=== PATIENT | male | born 1945 | race Caucasian/White ===

== ENCOUNTER 2016-12-02 17:28 | Emergency (ER) | payer MEDICARE ==
[2016-12-02 18:11] VITALS: BP 130/91
--- NOTE | 2016-12-02 18:32 | UC ---
Skin Complaint HPI - HPI Summary HPI Summary: 71 yo male remove tick from left chest today states he thinks it was attached for 2 days - History of Current Complaint Chief Complaint: UCSkin Time Seen by Provider: 12/02/16 18:24 Stated Complaint: TICK BITE Hx Obtained From: Patient Onset/Duration: Sudden Onset Skin Exposure Onset/Duration: Days Ago Timing: Constant Onset Severity: Mild Current Severity: None Pain Intensity: 0 Pain Scale Used: 0-10 Numeric Location: Other - left chest Aggravating: Nothing Alleviating: Nothing Associated Signs & Symptoms: Positive: Negative Related History: Insect Bite/Sting - Allergy/Home Medications Allergies/Adverse Reactions: Allergies Allergy/AdvReac Type Severity Reaction Status Date / Time No Known Allergies Allergy Verified 11/01/14 10:31 Home Medications: Home Medications Amlodipine Besylate-Benazepril [Lotrel 5-20 mg] 1 cap PO DAILY 12/02/16 [ History Confirmed 12/02/16] Aspirin EC Low Dose* [Ecotrin EC Low Dose 81 MG*] 81 mg PO DAILY 12/02/16 [ History Confirmed 12/02/16] Atorvastatin* [Lipitor*] 10 mg PO 1700 12/02/16 [History Confirmed 12/02/16] DULoxetine DR CAP* [Cymbalta CAP*] 30 mg PO BID 12/02/16 [History Confirmed 08/08] Meloxicam 7.5 mg PO DAILY 12/02/16 [History Confirmed 12/02/16] Metoprolol Tartrate TAB* [Lopressor TAB*] 25 mg PO DAILY 12/02/16 [History Confirmed 12/02/16] Omeprazole CAP* [Prilosec CAP* 20 MG] 20 mg PO DAILY 12/02/16 [History Confirmed 12/02/16] Tamsulosin CAP* [Flomax CAP*] 0.4 mg PO DAILY 12/02/16 [History Confirmed ] Review of Systems Constitutional: Negative Skin: Negative Eyes: Negative ENT: Negative Respiratory: Negative Cardiovascular: Negative Gastrointestinal: Negative Genitourinary: Negative Motor: Negative Neurovascular: Negative Musculoskeletal: Negative Neurological: Negative Psychological: Negative All Other Systems Reviewed And Are Negative: Yes PMH/Surg Hx/FS Hx/Imm Hx Previously Healthy: Yes Cardiovascular History Of: Reports: Hypertension Denies: Cardiac Disorders - Surgical History Surgical History: Yes Surgery Procedure, Year, and Place: 12/2012 total hip left side; appy and hernia 1978. bladder and prostate 2002; hernia inguinal ~2005 - Family History Known Family History: Positive: Hypertension, Diabetes - Social History Alcohol Use: Daily Alcohol Amount: 1-2 daily Substance Use Type: None Smoking Status (MU): Never Smoked Tobacco Physical Exam Triage Information Reviewed: Yes Appearance: Well-Appearing, No Pain Distress, Well-Nourished Vital Signs: Initial Vital Signs Temp 97.2 F 12/02/16 18:02 Pulse 99 12/02/16 18:02 Resp 16 12/02/16 18:02 BP 130/91 12/02/16 18:02 Pulse Ox 96 12/02/16 18:02 Vital Signs Reviewed: Yes Eyes: Positive: Conjunctiva Clear ENT: Positive: Other: - bilat hearing aids. Negative: Hearing grossly normal, Nasal congestion, Nasal drainage, Trismus, Muffled/hoarse voice Dental: Negative: Abscess @ Neck: Positive: Supple, Nontender, No Lymphadenopathy Respiratory: Positive: Lungs clear, Normal breath sounds, No respiratory distress, No accessory muscle use Cardiovascular: Positive: RRR, No Murmur Musculoskeletal: Positive: Strength Intact, ROM Intact, No Edema Neurological: Positive: Alert Psychological Exam: Normal Skin Exam: Normal - tick removed in toto/no granuloma Course/Dx - Diagnoses Provider Diagnoses: tick bite. michael disease prophylaxis Discharge - Discharge Plan Condition: Stable Disposition: HOME Prescriptions: DOXYcycline CAP(*) [DOXYcycline 100MG CAP(*)] 200 mg PO ONCE #2 cap Patient Education Materials: Tick Bite (ED) Referrals: Magdalena Abad MD [Primary Care Provider] - Additional Instructions: call for any questions return for any problems take two doxy with food today
== END 2016-12-02 18:39 | disposition home or self-care (01) ==
LOC: UCCORT 17:28
DX: S20.362A Insect bite (nonvenomous) of left front wall of thorax, initial encounter (principal); W57.XXXA Bitten or stung by nonvenomous insect and other nonvenomous arthropods, initial encounter; Y93.9 Activity, unspecified; Y92.9 Unspecified place or not applicable; I10 Essential (primary) hypertension; Z96.642 Presence of left artificial hip joint
CPT/HCPCS: 99212; G0463

== ENCOUNTER 2017-01-19 09:01 | Emergency (ER) | payer MEDICARE ==
[2017-01-19 09:45] VITALS: BP 128/82
--- NOTE | 2017-01-19 09:51 | UC ---
Skin Complaint HPI - HPI Summary HPI Summary: tick bite left lower leg x 6 days ago tick was removed by the pt. now the area is red, tender, no discharge, no fever, no chills, no joint pain , pt. took doxy 200 mg x 1 6 days ago - History of Current Complaint Chief Complaint: UCSkin Time Seen by Provider: 01/19/17 09:30 Stated Complaint: TICK BITE Hx Obtained From: Patient Onset/Duration: Sudden Onset, Lasting Days - 6, Still Present Timing: Constant Onset Severity: Moderate Current Severity: Moderate Character: Swelling, Pain, Raised Aggravating: Nothing Alleviating: Nothing Associated Signs & Symptoms: Positive: Tenderness. Negative: Nausea, Vomiting, Numbness, Thirst, Diaphoresis, Weakness, Pallor, Shivering, Fever, Chills, Red Streaks - Allergy/Home Medications Allergies/Adverse Reactions: Allergies Allergy/AdvReac Type Severity Reaction Status Date / Time No Known Allergies Allergy Verified 01/19/17 09:21 Home Medications: Home Medications Amlodipine Besylate [Norvasc 5 mg tab] 5 mg PO DAILY 01/19/17 [History Confirmed 01/19/17] Benazepril HCl 20 mg PO QAM 01/19/17 [History Confirmed 01/19/17] Review of Systems Constitutional: Negative Skin: Negative Eyes: Negative ENT: Negative Respiratory: Negative Cardiovascular: Negative Gastrointestinal: Negative Genitourinary: Negative Motor: Negative Neurovascular: Negative Musculoskeletal: Negative Neurological: Negative Psychological: Negative All Other Systems Reviewed And Are Negative: Yes PMH/Surg Hx/FS Hx/Imm Hx Cardiovascular History Of: Reports: Hypertension Denies: Cardiac Disorders - Surgical History Surgical History: Yes Surgery Procedure, Year, and Place: 12/2012 total hip left side; appy and hernia 1978. bladder and prostate 2002; hernia inguinal ~2005 - Family History Known Family History: Positive: Hypertension, Diabetes - Social History Alcohol Use: Daily Alcohol Amount: 1-2 daily Substance Use Type: None Smoking Status (MU): Never Smoked Tobacco - Immunization History Most Recent Tetanus Shot: about 2012 Physical Exam Triage Information Reviewed: Yes Appearance: Well-Appearing, No Pain Distress, Well-Nourished Vital Signs: Initial Vital Signs Temp 98.3 F 01/19/17 09:13 Pulse 94 01/19/17 09:13 Resp 18 01/19/17 09:13 BP 128/82 01/19/17 09:13 Eye Exam: Normal Eyes: Positive: Conjunctiva Clear ENT: Positive: Normal ENT inspection, Hearing grossly normal, Pharynx normal Neck: Positive: Supple, Nontender, No Lymphadenopathy Respiratory: Positive: Chest non-tender, Lungs clear, Normal breath sounds Cardiovascular: Positive: RRR, No Murmur, Pulses Normal Skin: Positive: Other - tick site at the left lower leg, + erythema due to truma , no discharge, mild tenderness Course/Dx - Diagnoses Provider Diagnoses: tick bite. wound care Discharge - Discharge Plan Condition: Stable Disposition: HOME Patient Education Materials: Acute Wound Care (ED) Referrals: Magdalena Abad MD [Medical Doctor] - If Needed Additional Instructions: keep the wound clean and dry no need for po abx
== END 2017-01-19 09:54 | disposition home or self-care (01) ==
LOC: UCCORT 09:01
DX: S80.862A Insect bite (nonvenomous), left lower leg, initial encounter (principal); W57.XXXA Bitten or stung by nonvenomous insect and other nonvenomous arthropods, initial encounter
CPT/HCPCS: 99211; G0463

== ENCOUNTER → 2019-07-26 11:00 | Day surgery (SDC) | payer MEDICARE ==
[~2019-07-26 11:00] MED LIST: Buffered Lidocaine 1% SYRIN* 1 ML/SYRINGE INTRADERM ONE; Midazolam* 1 MG/ML 2 ML VIAL (2 MG) ONE
[2019-07-26 14:22] VITALS: BP 129/83
--- NOTE | 2019-07-26 15:45 | OP ---
DATE OF OPERATION: 07/26/2019 - [facility] DATE OF : 1945. SURGEON: Rodríguez Warren M.D. PREOPERATIVE DIAGNOSIS: Cataract left eye. POSTOPERATIVE DIAGNOSIS: Cataract left eye. OPERATIVE PROCEDURE: Extracapsular cataract extraction with intraocular lens implant left eye. DESCRIPTION OF PROCEDURE: The patient was brought to the operating room after being given 1/2% Alcaine with epinephrine drops in the preoperative area. The eye was prepped and draped in the usual sterile fashion. Sterile drape and eyelid speculum were placed. Again, topical 1/2% Alcaine with epinephrine was given. A paracentesis incision was made at the 3 o'clock position with the No.75 blade. Clear cornea incision 2.2 x 2.2-mm was created at the 6 o'clock position starting at the anterior limbus using the 2.2-mm keratome. The anterior chamber was irrigated with 0.4 mL of 1% non-preservative intracameral lidocaine and filled with DisCoVisc. A capsulorrhexis was completed using the cystotome and the Utrata forceps. Hydrodissection was performed with balanced salt solution. The lens nucleus was removed with the Phacoemulsification handpiece without incident. Cortex was removed with the irrigation-aspiration handpiece. The capsular bag was re-inflated using DisCoVisc and an [id number] 22.5 implant was inserted with the shooter. The pupil was very small, so a Malyugin ring was used to dilate the pupil prior to capsulorrhexis and removed after insertion of the lens. The irrigation-aspiration handpiece was used to remove all residual DisCoVisc. The eye was refilled with balanced salt solution and the wound checked and found to be watertight. Topical Maxitrol drops were given. Indication for complex cataract surgery: Pupil area abnormalities requiring pupil dilation device. [id number]/[facility] #: [id number] [facility] MEDICAL CENTERVeronica
== END | disposition home or self-care (01) ==
LOC: OREAST 11:00
PROVIDERS: ATTEND Specialist
DX: H25.812 Combined forms of age-related cataract, left eye (principal); H21.562 Pupillary abnormality, left eye; H53.022 Refractive amblyopia, left eye; I10 Essential (primary) hypertension; E78.00 Pure hypercholesterolemia, unspecified; M19.90 Unspecified osteoarthritis, unspecified site; E78.5 Hyperlipidemia, unspecified; K21.9 Gastro-esophageal reflux disease without esophagitis
CPT/HCPCS: J2250; V2632

== ENCOUNTER 2019-08-02 10:39 | Day surgery (SDC) | payer MEDICARE ==
[~2019-08-02 10:39] MED LIST changes: +Cyclopentolate 1% OPTH.SOL* 2 ML BTL ONE; +Ketorolac 0.5% OPHTH (NF) 0.5 % 5 ML BTL ONE; +Lidocaine 1% MPF ** 5 ML VIAL ONE; +Lidocaine 2% w/ EPI 1:200,000* 20 ML SDV VIAL ONE; -Midazolam* 1 MG/ML 2 ML VIAL (2 MG) ONE; +Neomycin/Polymy/Dex OPTH.SUSP* MAXITROL 0.1% 5 ML ONE; +Phenylephrine OPHTH SOL 2.5%* 2 ML ONE; +Povidone Iodine 5% OPTH* 30 ML BTL ONE; +Proparacaine 0.5% OPHTH.SOL* 15 ML BTL ONE; +acetaZOLAMIDE TAB* 250 MG ONE
[2019-08-02] MEDS ORDERED: Midazolam* 1 MG/ML 2 ML VIAL (2 MG) ONE (14:07)
[2019-08-02 14:54] VITALS: BP 130/89
--- NOTE | 2019-08-02 15:01 | OP ---
DATE OF OPERATION: 08/02/2019. DATE OF : 1945. SURGEON: Rodríguez Warren M.D. PREOPERATIVE DIAGNOSIS: Cataract right eye. POSTOPERATIVE DIAGNOSIS: Cataract right eye. OPERATIVE PROCEDURE: Extracapsular cataract extraction with intraocular lens implant right eye. PROCEDURE: The patient was brought to the operating room after being given 1/2% Alcaine with epineph rine drops in the preoperative area. The eye was prepped and draped in the usual sterile fashion. S terile drape and eyelid speculum were placed. Again, topical 1/2% Alcaine with epinephrine was given . A paracentesis incision was made at the 9 o'clock position with the No.75 blade. Clear cornea inc ision 2.2 x 2.2-mm was created at the 12 o'clock position starting at the anterior limbus using the 2 .2-mm keratome. The anterior chamber was irrigated with 0.4 mL of 1% non-preservative intracameral l idocaine and filled with DisCoVisc. A capsulorrhexis was completed using the cystotome and the Utrat a forceps. Hydrodissection was performed with balanced salt solution. The lens nucleus was removed w ith the Phacoemulsification handpiece without incident. Cortex was removed with the irrigation-aspir ation handpiece. The capsular bag was re-inflated using DisCoVisc and an [id number] 23.5 implant was ins erted with the shooter. The irrigation-aspiration handpiece was used to remove all residual DisCoVis c. The eye was refilled with balanced salt solution and the wound checked and found to be watertight . Topical Maxitrol drops were given. [id number]/[facility] #: [id number]
== END 2019-08-02 14:53 | disposition home or self-care (01) ==
LOC: OREAST 10:39
PROVIDERS: ATTEND Specialist
DX: H25.811 Combined forms of age-related cataract, right eye (principal); H53.022 Refractive amblyopia, left eye; I10 Essential (primary) hypertension; E78.00 Pure hypercholesterolemia, unspecified; M19.90 Unspecified osteoarthritis, unspecified site; K21.9 Gastro-esophageal reflux disease without esophagitis; N40.0 Benign prostatic hyperplasia without lower urinary tract symptoms; E78.5 Hyperlipidemia, unspecified
CPT/HCPCS: A9270-GY; J2250; V2787